=== PATIENT | female | born 1995 | race Caucasian/White ===

== ENCOUNTER 2017-03-20 18:20 | Emergency (ER) | payer SELFPAY ==
[~2017-03-20 18:20] MED LIST: PREN-129 OR
[2017-03-20 18:33] VITALS: BP 142/78
== END 2017-03-20 21:00 | disposition home or self-care (01) ==
LOC: ER 18:27
DX: S81.852A Open bite, left lower leg, initial encounter (principal); Z88.2 Allergy status to sulfonamides; Z87.891 Personal history of nicotine dependence; W54.0XXA Bitten by dog, initial encounter; Y93.89 Activity, other specified; Y99.8 Other external cause status; Y92.89 Other specified places as the place of occurrence of the external cause

== ENCOUNTER 2018-02-22 19:59 | Emergency (ER) | payer MEDICAID ==
[~2018-02-22] VITALS: Ht 147.3 cm; Wt 53.1 kg
[2018-02-22 21:30] VITALS: BP 112/64
[2018-02-22] MEDS ORDERED: cefTRIAXone SOD 1,000 MG VL IM ONE (23:00)
== END 2018-02-22 23:41 | disposition home or self-care (01) ==
LOC: ER 19:59
DX: H00.033 Abscess of eyelid right eye, unspecified eyelid (principal); Z88.2 Allergy status to sulfonamides
CPT/HCPCS: 96372; 99283; J0696